=== PATIENT | male | born 1990 | race Caucasian/White ===

== ENCOUNTER 2017-12-01 12:33 | Emergency (ER) | payer OTHER ==
[~2017-12-01] VITALS: Ht 177.8 cm; Wt 126.3 kg
[2017-12-01 13:22] VITALS: BP 144/86
--- NOTE | 2017-12-01 13:27 | NUR ---
PATIENT TAKEN TO [facility]
[2017-12-01 13:58] LABS: APPEARANCE,URINE SL CLOUDY (CLEAR); BILIRUBIN,URINE NEGATIVE (NEGATIVE); BLOOD, URINE 3+ (NEGATIVE); COLOR,URINE YELLOW (YELLOW); LEUKOCYTE ESTERASE ,URINE 3+ (NEGATIVE); NITRITE, URINE POSITIVE (NEGATIVE); PH,URINE 6.5 (5.0-9.0); UGLUCOSE NEGATIVE (NEGATIVE)
--- NOTE | 2017-12-01 14:07 | NUR ---
PATIENT BACK FROM CT AND AWAITING FOR RESULTS.
[2017-12-01 14:09] LABS: RBC,URINE 50-80 /HPF (0-5); WBC,URINE 60-80 /HPF (0-5)
--- NOTE | 2017-12-01 14:29 | NUR ---
REASSESSED BY DR. CUMMINS
== END 2017-12-01 14:52 | disposition home or self-care (01) ==
LOC: MED 12:33
DX: N39.0 Urinary tract infection, site not specified (principal); N12 Tubulo-interstitial nephritis, not specified as acute or chronic; R03.0 Elevated blood-pressure reading, without diagnosis of hypertension
CPT/HCPCS: 36415; 81001; 87086; 87186; 99285

== ENCOUNTER 2019-05-11 08:48 | Emergency (ER) | payer OTHER ==
[~2019-05-11] VITALS: Ht 180.3 cm; Wt 135.2 kg
[2019-05-11 08:57] VITALS: BP 144/90
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
--- NOTE | 2019-05-11 09:59 | NUR ---
DR JOYCE AT BEDSIDE FOR PT EVAL
[2019-05-11] MEDS ORDERED: IBUPROFEN 800 MG TAB PO ONE (10:00)
[2019-05-11] MEDS ORDERED: DEXAMETHASONE 10 MG/ML VIAL IM ONE (10:00)
[2019-05-11] MEDS ORDERED: HYDROcodone/APAP 5/325 MG 1 TAB TAB PO ONE (10:00)
[2019-05-11 10:40] VITALS: BP 139/85
--- NOTE | 2019-05-11 10:40 | NUR ---
Patient discharged with v/s stable. Written and verbal after care instructions given and explained. Patient alert, oriented and verbalized understanding of instructions. Ambulatory with steady gait. All questions addressed prior to discharge. ID band removed. Patient advised to follow up with PMD. Rx of [place], Ibuprofen given. Patient educated on indication of medication including possible reaction and side effects. Opportunity to ask questions provided and answered.
== END 2019-05-11 10:40 | disposition home or self-care (01) ==
LOC: MED 08:48
DX: S33.5XXA Sprain of ligaments of lumbar spine, initial encounter (principal); X50.9XXA Other and unspecified overexertion or strenuous movements or postures, initial encounter; Y93.89 Activity, other specified; Y92.34 Swimming pool (public) as the place of occurrence of the external cause; Y99.8 Other external cause status
CPT/HCPCS: 96372; 99283; J1100

== ENCOUNTER 2020-06-20 16:19 | Emergency (ER) | payer OTHER ==
[~2020-06-20] VITALS: Ht 180.3 cm; Wt 141.1 kg
[2020-06-20 16:23] VITALS: BP 121/78
--- NOTE | 2020-06-20 16:26 | NUR ---
PT AMBULATED TO BED 11, STEADY GAIT.
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
[2020-06-20] MEDS: KETOROLAC 60 MG/2 ML VIAL IM ONE (17:03)
[2020-06-20 18:22] VITALS: BP 121/78
--- NOTE | 2020-06-20 18:23 | NUR ---
Patient discharged with v/s stable. Written and verbal after care instructions given and explained. Patient alert, oriented and verbalized understanding of instructions. Ambulatory with steady gait. All questions addressed prior to discharge. ID band removed. Patient advised to follow up with PMD. Rx of FLEXERIL, NAPROXEN given. Patient educated on indication of medication including possible reaction and side effects. Opportunity to ask questions provided and answered.
== END 2020-06-20 18:23 | disposition home or self-care (01) ==
LOC: MED 16:19
DX: T14.8XXA Other injury of unspecified body region, initial encounter (principal); M79.662 Pain in left lower leg; M79.661 Pain in right lower leg; M94.0 Chondrocostal junction syndrome [Tietze]; V49.9XXA Car occupant (driver) (passenger) injured in unspecified traffic accident, initial encounter; Y93.89 Activity, other specified; Y92.89 Other specified places as the place of occurrence of the external cause; Y99.8 Other external cause status
CPT/HCPCS: 71045; 73590; 93005; 96372; 99284; J1885

== ENCOUNTER 2020-11-30 06:41 | Emergency (ER) | payer OTHER ==
--- NOTE | 2020-11-30 06:45 | NUR ---
PATIENT LEFT WITHOUT BEING SEEN BY DR. MAY. NO FURTHER CARE PROVIDED FOR PATIENT.
== END 2020-11-30 06:45 | disposition left against medical advice (07) ==
LOC: MED 06:41
DX: R05 Cough (principal); Z53.21 Procedure and treatment not carried out due to patient leaving prior to being seen by health care provider